=== PATIENT | female | born 1950 | race Caucasian/White ===

== ENCOUNTER 2019-06-23 06:14 | Inpatient (IN) ==
[2019-06-23] MEDS ORDERED: CeFAZolin Syr 2,000MG/20 ML 2,000 MG/20 ML SYRINGE IVPB ONE (06:55)
[2019-06-23] MEDS ORDERED: Ropivacaine/PF 0.5% 30 ML VIAL ONE ×2 (06:59→07:32)
[2019-06-23] MEDS ORDERED: ROPIVACAINE/PF/NS 0.25% 1 EACH SYRINGE INTRAART ONE ×2 (06:59→07:32)
[2019-06-23] MEDS ORDERED: Ringers Solution, Lactated 1,000 ML IVC SCH ×2 (07:00→09:45)
[2019-06-23] MEDS ORDERED: Scopolamine Patch 1.5 MG PATCH.TD72 TD ONE (07:01)
[2019-06-23] MEDS ORDERED: *HR* Rocuronium Bromide 50 MG/5 ML VIAL ONE (07:04)
[2019-06-23] MEDS ORDERED: *HR* Propofol 200 MG/20 ML VIAL IVP ONE (07:04)
[2019-06-23] MEDS ORDERED: Ondansetron 4 MG/2 ML VIAL ONE (07:04)
[2019-06-23] MEDS ORDERED: Dexamethasone 4 MG/ML VIAL ONE (07:04)
[2019-06-23] MEDS ORDERED: Lidocaine -MPF 2% 2 ML VIAL ONE (07:04)
[2019-06-23] MEDS ORDERED: Ethanol\\Acetic Acid\\Na Ace\\Ben 1,000 ML IRRIG.SOLN IR ONE (07:15)
[2019-06-23] MEDS ORDERED: Lidocaine/EPI 1:100k 1% 20 ML VIAL ONE (07:16)
[2019-06-23] MEDS ORDERED: Ondansetron 4 MG/2 ML VIAL IVP ONE (07:16)
[2019-06-23] MEDS ORDERED: *HR* HYDROmorphone (PF) 1 MG/ML SYRINGE IVP PRN (07:16)
[2019-06-23] MEDS ORDERED: *HR* Promethazine 25 MG/ML VIAL IVP PRN (07:16)
[2019-06-23] MEDS ORDERED: *HR* OxyCODONE Immed Rel 5 MG TABLET PO PRN ×2 (07:16→09:38)
[2019-06-23] MEDS ORDERED: *HR* FentaNYL (PF) 100 MCG/2 ML VIAL ONE (07:28)
[2019-06-23] MEDS ORDERED: *HR* Midazolam HCl 2 MG/2 ML VIAL ONE (07:28)
[2019-06-23] MEDS ORDERED: EPHEDrine 50 MG/ML VIAL ONE (08:12)
[2019-06-23] MEDS ORDERED: *HR* PHENYLEPHRINE 1,000 MCG/10 ML SYRINGE IVP ONE (08:18)
[2019-06-23] MEDS ORDERED: *HR* Phenylephrine 10 MG/ML VIAL ONE (08:20)
[2019-06-23] MEDS ORDERED: Tranexamic Acid 1,000 MG/10 ML VIAL ONE (08:24)
[2019-06-23] MEDS ORDERED: Ondansetron 4 MG/2 ML VIAL IVP PRN (09:38)
[2019-06-23] MEDS ORDERED: Sennosides 8.6 MG TABLET PO PRN (09:38)
[2019-06-23] MEDS ORDERED: Temazepam 15 MG CAPSULE PO PRN (09:38)
[2019-06-23] MEDS ORDERED: MOM Conc 10 ML UD.LIQ PO PRN (09:38)
[2019-06-23] MEDS: *HR* OxyCODONE/APAP 5/325 TABLET PO PRN ×2 (13:32→18:18)
[2019-06-23] MEDS: *HR* Metformin 500 MG TABLET PO SCH (21:22)
[2019-06-23] MEDS: Pregabalin 75 MG CAPSULE PO SCH (21:23)
[2019-06-24] MEDS: *HR* OxyCODONE/APAP 5/325 TABLET PO PRN ×2 (02:28→12:02)
[2019-06-24 05:03] LABS: Hematocrit 30.9 % (35.3-44.9); Hemoglobin 8.9 g/dL (11.5-15.4)
[2019-06-24 05:25] LABS: BUN/Creatinine Ratio 21 (6-26); Blood Urea Nitrogen 20 mg/dL (8-23); Calcium 9.7 mg/dL (8.6-10.3); Carbon Dioxide 33 mEq/L (23-29); Chloride 100 mEq/L (98-107); Glucose 125 mg/dL (70-105); Osmolality,Calculated 290 (280-300); Potassium 4.6 mEq/L (3.5-5.1); Sodium 138 mEq/L (136-145); eGFR For African Americans > 60 (> 60); eGFR For Non-African Americans 57 (> 60)
[2019-06-24] MEDS ORDERED: Loratadine 10 MG TABLET PO SCH (09:00)
[2019-06-24] MEDS ORDERED: amLODIPine 5 MG TABLET PO SCH (09:00)
[2019-06-24] MEDS ORDERED: Multivit/Ca/Min/Fe/FA 1 TAB TABLET PO SCH (09:00)
[2019-06-24] MEDS ORDERED: NON-FORMULARY MEDICATION 1 EACH EACH (Omega-3 Fatty Acids [Fish Oil Concentrate] 1,000 MG) PO SCH (09:00)
[2019-06-24] MEDS ORDERED: NON-FORMULARY MEDICATION 1 EACH EACH (Glucosamine/D3/Boswellia Serra [Osteo Bi-Flex Tablet PO SCH (09:00)
[2019-06-24] MEDS ORDERED: [UNRECOGNIZED DRUG - OTHER] PO SCH (09:00)
[2019-06-24] MEDS ORDERED: hydroCHLOROthiazide 25 MG TABLET PO SCH (09:00)
[2019-06-24] MEDS ORDERED: UBIDECARENONE 300 MG PO SCH (09:00)
[2019-06-24] MEDS ORDERED: Lactobacillus 1 EACH CAP.SPRINK PO SCH (09:00)
[2019-06-24] MEDS: Pregabalin 75 MG CAPSULE PO SCH (09:19)
[2019-06-24] MEDS: *HR* Metformin 500 MG TABLET PO SCH (09:21)
[2019-06-24] MEDS ORDERED: *HR* Enoxaparin 30 MG/0.3 ML SYRINGE SQ SCH (09:40)
[2019-06-24] MEDS ORDERED: FLU Vac QV 19-20 (6Month+)/PF 0.5 ML SYRINGE IM ONE (11:33)
[2019-06-24 12:00] VITALS: BP 131/44
== END 2019-06-24 16:11 | disposition home or self-care (01) | DRG 483 ==
LOC: SAMDAY 06:14 → 3NENU 10:42
PROVIDERS: ADMIT Orthopaedic Surgery Sports Medicine; ATTEND Orthopaedic Surgery Sports Medicine